=== PATIENT | female | born 1985 | race Caucasian/White ===

== ENCOUNTER 2016-05-27 07:39 | Emergency (ER) | payer SELFPAY ==
[~2016-05-27] VITALS: Ht 154.9 cm; Wt 54.5 kg
[2016-05-27 07:41] VITALS: BP 123/82; PULSE 122; RESP 18; TEMP 98; O2SAT 99
--- NOTE | 2016-05-27 08:36 | PD ---
HPI Chief Complaint: Skin Problem Time Seen by Provider: 08:28 Travel History International Travel<30 days: No Contact w/Intl Traveler<30days: No Traveled to known affect area: No History of Present Illness HPI Patient comes in for evaluation abscess left buttocks that began approximately 2 weeks ago. Patient has had this drained previously packed most recently 3 days ago. Patient states she continues to have drainage from it as well as burning pain. Patient is been taking Bactrim she has 2 days left on as well as [id number] pain medication and OxyContin with little relief of her pain. Patient denies any known fevers, nausea, vomiting, or . PFSH Past Medical History Medical History: Denies Significant Hx ?: Not Past Surgical History Hysterectomy: Yes Social History Alcohol Use: No Tobacco Use: No Substance Use: No Allergies-Medications (Allergen,Severity, Reaction): Coded Allergies: Doxycycline (Verified Allergy, Severe, Anaphylaxis, 05/27/16) Phenergan (Verified Allergy, Severe, Anaphylaxis, 05/27/16) Reglan (Verified Allergy, Severe, Anaphylaxis, 05/27/16) Vicodin (Verified Allergy, Severe, Anaphylaxis, 05/27/16) Reported Meds & Prescriptions Reported Meds & Active Scripts Active Diclofenac Sodium DR (Diclofenac Sodium) 75 Mg Tabdr 75 Mg PO Q12HR PRN Bactrim DS (Sulfamethoxazole-Trimethoprim) 800-160 Mg Tab 1 Tab PO BID Review of Systems Except as stated in HPI: all other systems reviewed are Neg Physical Exam Narrative GENERAL: Well-developed, well nourished, in no acute distress, and non-ill appearing. SKIN: Warm and dry. Well-healing abscess noted left lower buttocks packing in place. There is no drainage. There is no erythematous surrounding it. It is tender to palpation. It is not indurated or fluctuant. Exam was performed presence of a female staffing assistant Tala at all times. HEAD: Atraumatic. Normocephalic. EYES: Pupils equal and round. EOMI. No scleral icterus. No injection or drainage. ENT: No nasal bleeding or discharge. Mucous membranes pink and moist. NECK: Trachea midline. Supple. No nuclear rigidity. RESPIRATORY: No accessory muscle use. No respiratory distress. MUSCULOSKELETAL: No obvious deformities. No clubbing. No cyanosis. No edema. Full range of motion. NEUROLOGICAL: Awake and alert. No obvious cranial nerve deficits. Motor grossly within normal limits. Normal speech. PSYCHIATRIC: Appropriate mood and affect; insight and judgment normal. Data Data Last Documented VS Vital Signs Date Time Temp Pulse Resp B/P Pulse Ox O2 Delivery O2 Flow Rate FiO2 05/27/16 07:41 98.0 122 18 123/82 99 Room Air MDM Medical Decision Making Medical Screen Exam Complete: Yes Emergency Medical Condition: Yes Differential Diagnosis Abscess, cellulitis, wound infection, wound check, other Narrative Course Patient in no obvious distress upon re-evaluation. Patient was asked if they wanted to speak to my attending, which the patient did not wish to do at this time. Any questions/concerns in reference to patient diagnosis/condition discussed and clarified prior to patient's discharge. Reinforced sheer importance of close follow up with patient's primary physician or primary care clinic. Instructed patient to return to ED immediately, if symptoms return/ worsen. Pt showed understanding of above instructions. Further instructions and recommendations were detailed in discharge paperwork. Pt ambulated without difficulty out of ED at discharge. Procedures Procedure Narrative Verbal consent was obtained. Packing was removed. Patient tolerated procedure well. There is no complications. There is no indication for repacking at this time. Diagnosis Primary Impression: Abscess re-check Referrals: [facility] Patient Instructions: Abscess Follow-up (ED), General Instructions Additional Instructions: Follow-up with your primary care physician or return here in 2 days for recheck. Take all medication as prescribed. Return to the emergency department if symptoms get worse. Med/Other Pt SpecificInfo: Prescription(s) given Scripts Diclofenac Sodium DR 75 Mg Tabdr75 Mg PO Q12HR PRN (PAIN SCALE 1 TO 10) #14 TAB Ref 0 Prov:Koby Abraham MD 05/27/16 Sulfamethoxazole-Trimethoprim (Bactrim DS)800-160 Mg Tab1 Tab PO BID #14 TAB Ref 0 Prov:Koby Abraham MD 05/27/16 Disposition: 01 DISCHARGE HOME Condition: Stable Pasquale Sparks May 27, 2016 08:36
[2016-05-27] MEDS ORDERED: DICL75TA PO (08:38)
[2016-05-27] MEDS ORDERED: BACT800T5 PO (08:38)
== END 2016-05-27 08:55 | disposition home or self-care (01) ==
LOC: NEPB 07:39
DX: L02.31 Cutaneous abscess of buttock (principal); Z48.00 Encounter for change or removal of nonsurgical wound dressing
CPT/HCPCS: 99283